=== PATIENT | male | born 1970 | race Two or more races ===

== ENCOUNTER 2016-05-01 06:30 | Emergency (ER) | payer BC ==
[2016-05-01 07:00] LABS: INFLUENZA A NEG (NEG); INFLUENZA B NEG (NEG)
== END 2016-05-01 08:18 | disposition home or self-care (01) ==
LOC: CED 06:30
PROVIDERS: Nurse Practitioner
DX: J06.9 Acute upper respiratory infection, unspecified (principal); F17.200 Nicotine dependence, unspecified, uncomplicated
CPT/HCPCS: 87651; 87804; 87880; 99283